=== PATIENT | female | born 1980 | race Caucasian/White ===

== ENCOUNTER 2022-01-10 03:09 | Emergency (ER) | payer SELFPAY ==
[2022-01-10] MEDS ORDERED: ZIPRASIDONE MESYLATE 20 MG VIAL IM ONE ×2 (03:13→03:55)
--- NOTE | 2022-01-10 03:35 | Emergency Department Report ---
<HELEN CARDOSO - Last Filed: 01/10/22 06:00> ED Psych HPI - General Chief Complaint: Overdose Stated Complaint: WILI MYERS Time Seen by Provider: 01/10/22 03:18 - History of Present Illness Initial Comments: 41 yo F brought in by city policy with concern for overdose on unknown illicit drug [place]. Pt seen screaming and agitated in the examination room. No history is possible from patient. No other modifying or associated factors. - Related Data Allergies Allergy/AdvReac Type Severity Reaction Status Date / Time No Known Allergies Allergy Verified 01/10/22 03:52 ED Review of Systems Comment: All other systems reviewed and negative Psychiatric: other (agitation with likely illicit drug overdose ) ED Physical Exam - General Limitations: Other (overdose ) General appearance: alert, other (agitation ) - Head Head exam: Present: atraumatic, normal inspection - Eye Eye exam: Present: normal appearance Pupils: Present: normal accommodation - ENT ENT exam: Present: normal exam, normal orophraynx, mucous membranes dry - Neck Neck exam: Absent: tenderness - Respiratory Respiratory exam: Present: normal lung sounds bilaterally. Absent: respiratory distress, accessory muscle use - Cardiovascular Cardiovascular Exam: Present: regular rate, normal rhythm, normal heart sounds - GI/Abdominal GI/Abdominal exam: Present: soft, normal bowel sounds. Absent: distended, tenderness - Extremities Exam Extremities exam: Present: normal inspection, normal capillary refill. Absent: full ROM, tenderness, pedal edema - Back Exam Back exam: Absent: tenderness - Neurological Exam Neurological exam: Present: alert - Psychiatric Psychiatric exam: Present: agitated - Skin Skin exam: Present: warm, normal color ED Course - Reevaluation(s) Reevaluation #1: 01/10/22 06:[address] Sarkar while waiting for the UA and UDS and with consult with the psychiatrist -- ED Medical Decision Making - Lab Data Result diagrams: 01/10/22 04:02 01/10/22 04:02 - Medical Decision Making here with agitation with possibility of overdose with unknown illicit drug -- will go ahead and order routine psych labs -- Pt will be consulted with psychiatrist for further evaluation and treatment ED Disposition Clinical Impression: UTI (urinary tract infection), Polysubstance abuse Disposition: LEFT AWOL/ELOPED Does the pt Need Aspirin: No Condition: Stable Time of Disposition: 06:02 <EMILY SARKAR - Last Filed: 01/10/22 12:06> ED Review of Systems ROS: Stated complaint: MH EVELISA Other details as noted in HPI ED Course Vital Signs 01/10/22 01/10/22 01/10/22 03:50 03:52 11:10 Temperature 97.7 F 98.3 F Pulse Rate 78 76 Respiratory 15 18 Rate Blood Pressure 124/80 92/56 [Left] O2 Sat by Pulse 98 98 100 Oximetry - Reevaluation(s) Reevaluation #1: 01/10/22 12:04 THIS PATIENT WAS SIGNED OUT TO ME BY MY COLLEAGUE FOR THE FOLLOWIN yo F b rought in by city policy with concern for overdose on unknown illicit drug [place]. Pt seen screaming and agitated in the examination room. No history is possible from patient. No other modifying or associated factors. NURSE BROUGHT TO MY ATTENTION THAT PATIENT IS NOT 1013 AND TOOK OFF WITHOUT SIGNING AMA FORM. ED Medical Decision Making - Lab Data Result diagrams: 01/10/22 04:02 01/10/22 04:02 Critical care attestation.: If time is entered above; I have spent that time in minutes in the direct care of this critically ill patient, excluding procedure time. ED Disposition Is pt being admited?: No Does the pt Need Aspirin: No
[2022-01-10 04:14] LABS: Hematocrit 34.3 % (30.3-42.9); Hemoglobin 11.2 gm/dl (10.1-14.3); Mean Corpuscular HGB Conc 33 % (30-34); Mean Corpuscular Volume 83 fl (79-97); Platelet Count 322 K/mm3 (140-440); Red Blood Count 4.14 M/mm3 (3.65-5.03); Red Cell Distribution Width 18.6 % (13.2-15.2)
[2022-01-10 04:19] LABS: Basophils # (Auto) 0.1 K/mm3 (0.0-0.1); Basophils % (Auto) 1.1 % (0.0-1.8); Eosinophils # (Auto) 0.1 K/mm3 (0.0-0.4); Eosinophils % (Auto) 0.9 % (0.0-4.3); Lymphocytes % (Auto) 29.3 % (13.4-35.0); Monocytes # (Auto) 0.6 K/mm3 (0.0-0.8); Monocytes % (Auto) 9.3 % (0.0-7.3)
[2022-01-10] MEDS ORDERED: LORazepam 2 MG/ML VIAL IM ONE (04:27)
[2022-01-10] MEDS ORDERED: SODIUM CHLORIDE 0.9% 1000 ML 1,000 ML IV ONE (04:27)
[2022-01-10 04:33] LABS: Alanine Aminotransferase 14 units/L (7-56); Albumin 4.3 g/dL (3.9-5); BUN/Creatinine Ratio 18; Blood Urea Nitrogen 16 mg/dL (7-17); Calcium 9.4 mg/dL (8.4-10.2); Hemolysis Index 43
[2022-01-10 09:30] LABS: Benzodiazepines Screen,Urine Negative; Cannabinoid Screen,Urine Negative; Methadone Screen,Urine Negative; Opiate Screen,Urine Negative
[2022-01-10 09:35] LABS: Bacteria,Urine 4+ /HPF (Negative); Mucus,Urine 3+ /HPF
[2022-01-10 09:51] LABS: Color,Urine Amber (Yellow); RBC,Urine > 182.0 /HPF (0.0-6.0)
[2022-01-10 09:53] LABS: Bilirubin,Urine Negative (Negative); Blood,Urine Large (Negative); Protein,Urine 300 mg/dL mg/dL (Negative); Urobilinogen,Urine < 2.0 mg/dL (<2.0)
[2022-01-10 09:54] LABS: Amphetamine Screen,Urine Positive; Cocaine Screen,Urine Positive
[2022-01-10 11:11] VITALS: BP 92/56
[2022-01-10] MEDS ORDERED: levoFLOXacin 750 MG TAB PO ONE (11:27)
--- NOTE | 2022-01-10 16:43 | Consultation ---
History of Present Illness - Reason for Consult Consult date: 01/10/22 Reason for consult: MHE - History of Present Psychiatric Illness HPI Patient seen today in the ER. Patient states that she doesn't know why she was brought to the hospital, that they were just supposed to bring her wallet to her. Patient states that she lives with her room mate Petar and he was the one that is meant to bring her wallet. Patient denies SI/HI/AVH at this time. Patient refused her food while i was there. Will follow patient at this time and recommend inpatient psychiatric evaluation. PAST PSYCHIATRIC HISTORY: Diagnoses: Unknown Suicide attempts or Self-harm behavior: Unknown Prior psychiatric hospitalizations: Unknown Substance Abuse history:Unknown Previous psychiatric medications tried: Unknown Outpatient treatment: Unknown PAST MEDICAL HISTORY: Family Psychiatric History None reported or documented SOCIAL HISTORY Marital Status: Single Living Arrangements: With room mate Employment Status: Unemployed Access to guns/weapons: Unknown Education: High school History of Abuse: Unknown Legal History: Unknown REVIEW OF SYSTEMS ROS cannot be reliably obtained from the patient due to her confusion and somnolence. Constitutional: Negative for weight loss ENT: Negative for stridor Respiratory: Negative for cough or hemoptysis All other systems reviewed and are negative MENTAL STATUS General Appearance and Behavior: age appropriate, good eye contact, cooperative with questioning and polite Cooperation: Cooperative Psychomotor Behavior: within normal limits Mood: OK Affect and affective range: Congruent with stated mood Thought Process: illogical Thought Content: Not within reality Speech: Normal volume and Regular rate and rhythm Intellectual Functioning Average Suicidal Ideation: Denies SI Homicidal Ideation: Denies HI Impulse Control: intact Insight and Judgment: normal insight and judgment Memory: Poor Attention: Poor Orientation: alert RECOMMENDATIONS MEDICAL: Per primary team DELIRIUM PRECAUTIONS: Please re-orient patient frequently, keep lights on during the day, and minimize benzodiazepines and opiates as these medications could worsen patient's confusion. SR. MANAGER MARKETING: Defer to primary team DISPOSITION: Per primary team, acute inpatient psychiatric hospitalization when medically stable LEGAL STATUS: 1013 FOLLOW-UP: Will follow Medications and Allergies Allergies Allergy/AdvReac Type Severity Reaction Status Date / Time No Known Allergies Allergy Verified 01/10/22 03:52 Mental Status Exam - Vital signs Last Vital Signs Temp 98.3 F 01/10/22 11:10 Pulse 76 01/10/22 11:10 Resp 18 01/10/22 11:10 BP 92/56 01/10/22 11:10 Pulse Ox 100 01/10/22 11:10 Results Result Diagrams: 01/10/22 04:02 01/10/22 04:02 Abnormal lab results 01/10/22 01/10/22 01/10/22 Range/Units 04:02 04:02 04:02 MCH 27 L (28-32) pg RDW 18.6 H (13.2-15.2) % [place] % (Auto) 9.3 H (0.0-7.3) % Glucose 119 H (65-100) mg/dL Urine Blood (Negative) Urine WBC (Auto) (0.0-6.0) /HPF Salicylates < 0.3 L (2.8-20.0) mg/dL Acetaminophen (10.0-30.0) ug/mL 01/10/22 01/10/22 Range/Units 04:02 Unknown MCH (28-32) pg RDW (13.2-15.2) % [place] % (Auto) (0.0-7.3) % Glucose (65-100) mg/dL Urine Blood Large A (Negative) Urine WBC (Auto) 119.0 H (0.0-6.0) /HPF Salicylates (2.8-20.0) mg/dL Acetaminophen 5.0 L (10.0-30.0) ug/mL All other labs normal.
== END 2022-01-10 13:27 | disposition left against medical advice (07) ==
LOC: ED 03:09
DX: N39.0 Urinary tract infection, site not specified (principal); F19.10 Other psychoactive substance abuse, uncomplicated
CPT/HCPCS: 36415; 80053; 80307; 81001; 84703; 85025; 96372; 99284; J3486; 80320; G0480